=== PATIENT | female | born 1990 | race Caucasian/White ===

== ENCOUNTER 2016-08-03 12:41 | Emergency (ER) | payer OTHER ==
--- NOTE | 2016-08-03 13:29 | UC ---
UC General HPI - HPI Summary HPI Summary: complaint of RLQ pain that started 3 days ago aching sharp pain that never changes denies fever and chills intermittent headaches and cough in entire head for 3 days intermittent lower back pain diarrhea 2x per day for 3 days- denies blood in stool denies nausea and vomiting denies dysuria took some tylenol and excedrin without relief LMP 06/24/16- - History of Current Complaint Chief Complaint: UCAbdominalPain Stated Complaint: ABDOMINAL PAIN HEADACHE Time Seen by Provider: 08/03/16 12:51 Hx Obtained From: Patient - Allergy/Home Medications Allergies/Adverse Reactions: Allergies Allergy/AdvReac Type Severity Reaction Status Date / Time Adhesive Tape Allergy Mild Rash Verified 08/03/16 13:01 Penicillin G AdvReac Intermediate Vomiting Verified 08/03/16 13:01 PMH/Surg Hx/FS Hx/Imm Hx Previously Healthy: Yes Endocrine History Of: Reports: Thyroid Disease Denies: Diabetes Cardiovascular History Of: Denies: Cardiac Disorders Respiratory History Of: Denies: Asthma - Surgical History Surgical History: Yes Surgery Procedure, Year, and Place: sinus 2013 - Family History Known Family History: Positive: Hypertension, Diabetes Negative: Cardiac Disease - Social History Occupation: Unemployed Lives: With Family Alcohol Use: None Substance Use Type: None Smoking Status (MU): Light Every Day Tobacco Smoker Type: Cigarettes Amount Used/How Often: 1/2 pack day Have You Smoked in the Last Year: No When Did the Patient Quit Smoking/Using Tobacco: 2013 Household Exposure Type: Cigarettes Cessation Counseling: Patient Advised to Stop Review of Systems Constitutional: Negative Skin: Negative Eyes: Negative ENT: Negative Respiratory: Negative Cardiovascular: Negative Gastrointestinal: Abdominal Pain Genitourinary: Other - missed menses Motor: Negative Neurovascular: Negative Musculoskeletal: Negative Neurological: Headache Psychological: Negative All Other Systems Reviewed And Are Negative: Yes Physical Exam Triage Information Reviewed: Yes Appearance: No Pain Distress, Well-Nourished, Obese Vital Signs: Initial Vital Signs Temp 97.8 F 08/03/16 12:48 Pulse 68 08/03/16 12:48 Resp 16 08/03/16 12:48 BP 109/67 08/03/16 12:48 Pulse Ox 99 08/03/16 12:48 Vital Signs Reviewed: Yes Eyes: Positive: Conjunctiva Clear ENT: Positive: Pharynx normal, TMs normal Neck: Positive: No Lymphadenopathy Respiratory: Positive: Lungs clear, Normal breath sounds, No respiratory distress, No accessory muscle use Cardiovascular: Positive: RRR, No Murmur, Pulses Normal Abdomen Description: Positive: No Organomegaly, CVA Tenderness (R), Distended, Other: - RLQ tenderness. Negative: CVA Tenderness (L), Guarding Bowel Sounds: Positive: Present Musculoskeletal: Positive: No Edema Neurological Exam: Normal Psychological Exam: Normal Skin Exam: Normal Course/Dx - Course Course Of Treatment: exam completed. will send to ED for further evlauaiton and treatment d/t acute RLQ pain and tenderness - Differential Dx - Multi-Symptom Provider Diagnoses: RLQ pain - Physician Notifications Discussed Patient Care With: Dr Callaway Time Discussed With Above Provider: 14:11 Discharge - Discharge Plan Condition: Stable Disposition: TRANS HIGHER LVL OF CARE FAC Referrals: Smitha Naidu MD [Primary Care Provider] -
[2016-08-03 14:19] VITALS: BP 107/59
== END 2016-08-03 14:19 | disposition short-term general hospital (02) ==
LOC: UCCORT 12:41
DX: R10.31 Right lower quadrant pain (principal); R51 Headache; N91.2 Amenorrhea, unspecified; Z32.02 Encounter for pregnancy test, result negative; E66.9 Obesity, unspecified; Z88.0 Allergy status to penicillin; F17.210 Nicotine dependence, cigarettes, uncomplicated
CPT/HCPCS: 81003; 84702; 99213; G0463

== ENCOUNTER 2016-10-05 14:31 | Emergency (ER) | payer OTHER ==
[2016-10-05 14:46] VITALS: BP 115/79
--- NOTE | 2016-10-05 15:19 | UC ---
Headache HPI - HPI Summary HPI Summary: 26 yo female with head which she noted on wakening yesterday AM throbbing bitemporal n/v x 4 photophobia no uri symptoms has a fhx of migraines (mom) - History Of Current Complaint Chief Complaint: UCHeadache Stated Complaint: HEADACHE,VOMITING Time Seen by Provider: 10/05/16 14:51 Hx Obtained From: Patient Hx Last Menstrual Period: 09/24/16 Onset/Duration: Gradual Onset, Lasting Days Onset Of Symptoms: Sudden Initially Headache Was: Moderate Currently Pain Is: Moderate Pain Intensity: 6 Pain Scale Used: 0-10 Numeric Timing: Constant Character: Throbbing Location of Headache: Temporal Aggravating Factor: Nothing Allevating Factors: Nothing Associated Signs And Symptoms: Positive: Nausea, Vomiting - Allergies/Home Medications Allergies/Adverse Reactions: Allergies Allergy/AdvReac Type Severity Reaction Status Date / Time Adhesive Tape Allergy Mild Rash Verified 10/05/16 14:41 Penicillin G AdvReac Intermediate Vomiting Verified 10/05/16 14:41 Home Medications: Home Medications Acetaminophen TAB* [Tylenol TAB*] 500 mg PO Q4H PRN 10/05/16 [History Confirmed 10/05/16] PMH/Surg Hx/FS Hx/Imm Hx Previously Healthy: Yes - Surgical History Surgical History: Yes Surgery Procedure, Year, and Place: sinus 2013. - Family History Known Family History: Positive: Hypertension, Diabetes Negative: Cardiac Disease - Social History Alcohol Use: None Substance Use Type: None Smoking Status (MU): Heavy Every Day Tobacco Smoker Type: Cigarettes Amount Used/How Often: 1/2 pack day Have You Smoked in the Last Year: No When Did the Patient Quit Smoking/Using Tobacco: 2013 Household Exposure Type: Cigarettes Review of Systems Constitutional: Negative Skin: Negative Eyes: Negative ENT: Negative Respiratory: Negative Cardiovascular: Negative Gastrointestinal: Vomiting, Nausea Genitourinary: Negative Motor: Negative Neurovascular: Negative Musculoskeletal: Negative Neurological: Headache Psychological: Negative All Other Systems Reviewed And Are Negative: Yes Physical Exam Triage Information Reviewed: Yes Appearance: Well-Appearing, No Pain Distress, Well-Nourished Vital Signs: Initial Vital Signs Temp 97.8 F 10/05/16 14:42 Pulse 92 10/05/16 14:42 Resp 16 10/05/16 14:42 BP 115/79 10/05/16 14:42 Pulse Ox 96 10/05/16 14:42 Eye Exam: Normal ENT: Positive: Normal ENT inspection. Negative: Nasal congestion, Nasal drainage, Tonsillar exudate, Trismus, Muffled/hoarse voice Neck: Positive: Supple, Nontender Respiratory: Positive: Lungs clear, Normal breath sounds, No respiratory distress Cardiovascular: Positive: RRR, No Murmur, Pulses Normal Musculoskeletal: Positive: ROM Intact, No Edema Neurological Exam: Normal Neurological: Positive: Alert Psychological Exam: Normal Skin Exam: Normal Re-Evaluation - Re-Evaluation First Eval Re-Evaluation Time: 16:20 Change: Improved - LOPEZ 04/20, no nausea Headache Course/Dx - Course Course Of Treatment: CT brain (-) - Differential Dx/Diagnosis Provider Diagnoses: acute headache. ? migraine Discharge - Discharge Plan Condition: Stable Disposition: HOME Prescriptions: Naproxen Sodium [Naproxen Sodium 500 MG TAB] 500 mg PO BID PRN #30 tab PRN Reason: Pain Ondansetron TAB* [Zofran Tab*] 4 mg PO Q6H PRN #10 tab PRN Reason: Nausea Patient Education Materials: Acute Headache (ED) Forms: *Work Release Referrals: Smitha Naidu MD [Primary Care Provider] - 2 Days (recheck in 2-5 days if not better)
--- NOTE | 2016-10-05 15:31 | RAD ---
HISTORY: Headache and vomiting COMPARISONS: None TECHNIQUE: Multiple contiguous axial CT scans were obtained of the head without intravenous contrast. FINDINGS: HEMORRHAGE/INFARCT: There is no hemorrhage or acute infarct. MASSES/SHIFT: There is no mass or shift. EXTRA-AXIAL SPACES: There are no extra-axial fluid collections. SULCI AND VENTRICLES: The sulci and ventricles are normal in size and position for the patient's stated age. CEREBRUM: There are no focal parenchymal abnormalities. BRAINSTEM: There are no focal parenchymal abnormalities. CEREBELLUM: There are no focal parenchymal abnormalities. VESSELS: The vessels are grossly normal. PARANASAL SINUSES: The paranasal sinuses are clear. ORBITS: The orbits are unremarkable. BONES AND SOFT TISSUE: No bone or soft tissue abnormalities are noted. OTHER: None IMPRESSION: NO ACUTE INTRACRANIAL PATHOLOGY.
[2016-10-05] MEDS ORDERED: Ketorolac INJ* 30 MG/ML 1 ML VIAL IM ONE (15:47)
== END 2016-10-05 16:36 | disposition home or self-care (01) ==
LOC: UCCORT 14:31
DX: R51 Headache (principal)
CPT/HCPCS: 70450; 96372; 99212; G0463; J1885

== ENCOUNTER 2016-12-07 17:26 | Emergency (ER) | payer OTHER ==
--- NOTE | 2016-12-07 17:35 | UC ---
Complaint Female HPI - HPI Summary HPI Summary: 26 YEAR OLD FEMALE PRESENTS FOR A TEST. - History Of Current Complaint Stated Complaint: NEEDS PREG TEST Time Seen by Provider: 12/07/16 17:33 Hx Obtained From: Patient Hx Last Menstrual Period: 09/24/16 Onset/Duration: Gradual Onset Timing: Constant Severity Initially: Moderate Severity Currently: Moderate - Allergies/Home Medications Allergies/Adverse Reactions: Allergies Allergy/AdvReac Type Severity Reaction Status Date / Time Adhesive Tape Allergy Mild Rash Verified 12/07/16 17:43 Penicillin G AdvReac Intermediate Vomiting Verified 12/07/16 17:43 PMH/Surg Hx/FS Hx/Imm Hx Previously Healthy: Yes - Surgical History Surgical History: Yes Surgery Procedure, Year, and Place: sinus 2013. - Family History Known Family History: Positive: Hypertension, Diabetes Negative: Cardiac Disease - Social History Alcohol Use: None Substance Use Type: None Smoking Status (MU): Heavy Every Day Tobacco Smoker Type: Cigarettes Amount Used/How Often: 1/2 pack day Have You Smoked in the Last Year: No When Did the Patient Quit Smoking/Using Tobacco: 2013 Household Exposure Type: Cigarettes Review of Systems Constitutional: Negative Skin: Negative Eyes: Negative ENT: Negative Respiratory: Negative Cardiovascular: Negative Gastrointestinal: Negative Genitourinary: Negative Motor: Negative Neurovascular: Negative Musculoskeletal: Negative Neurological: Negative Psychological: Negative All Other Systems Reviewed And Are Negative: Yes Physical Exam Triage Information Reviewed: Yes Eye Exam: Normal ENT Exam: Normal Dental Exam: Normal Neck exam: Normal Neck: Positive: 1 Respiratory Exam: Normal Cardiovascular Exam: Normal Abdominal Exam: Normal Musculoskeletal Exam: Normal Neurological Exam: Normal Psychological Exam: Normal Skin Exam: Normal Complaint Female Dx - Differential Dx/Diagnosis Provider Diagnoses: Discharge - Discharge Plan Condition: Stable Disposition: HOME Patient Education Materials: (ED) Referrals: Smitha Naidu MD [Primary Care Provider] -
[2016-12-07 17:43] VITALS: BP 133/59
== END 2016-12-07 18:05 | disposition home or self-care (01) ==
LOC: UCCORT 17:26
DX: Z32.01 Encounter for pregnancy test, result positive (principal); F17.210 Nicotine dependence, cigarettes, uncomplicated
CPT/HCPCS: 81003; 84702; 99211; G0463

== ENCOUNTER 2016-12-24 10:17 | Emergency (ER) | payer OTHER ==
[2016-12-24 10:30] VITALS: BP 91/54
--- NOTE | 2016-12-24 11:30 | UC ---
Throat Pain/Nasal Remi HPI - HPI Summary HPI Summary: FIVE DAYS OF HEADACHE, SINUS CONGESTION, EAR ACHE, SORE THROAT. CHILLS. - History of Current Complaint Chief Complaint: UCGeneralIllness Stated Complaint: HEADACHE,SORE THROAT,BILATERAL EAR PAIN Time Seen by Provider: 12/24/16 10:58 Hx Obtained From: Patient Hx Last Menstrual Period: 09/24/16 Onset/Duration: Gradual Onset, Lasting Days Severity: Moderate Pain Intensity: 2 Pain Scale Used: 0-10 Numeric Cough: Nonproductive Associated Signs & Symptoms: Positive: Hoarseness, Sinus Discomfort, Nasal Discharge - Epiglottits Risk Factors Epiglottis Risk Factors: Negative - Allergies/Home Medications Allergies/Adverse Reactions: Allergies Allergy/AdvReac Type Severity Reaction Status Date / Time Adhesive Tape Allergy Mild Rash Verified 12/24/16 10:24 Sertraline [From Zoloft] Allergy Hives Verified 12/24/16 10:25 Penicillin G AdvReac Intermediate Vomiting Verified 12/24/16 10:24 PMH/Surg Hx/FS Hx/Imm Hx Previously Healthy: Yes - Surgical History Surgical History: Yes Surgery Procedure, Year, and Place: sinus 2013. - Family History Known Family History: Positive: Hypertension, Diabetes Negative: Cardiac Disease - Social History Occupation: Employed Full-time Lives: With Family Alcohol Use: None Substance Use Type: None Smoking Status (MU): Heavy Every Day Tobacco Smoker Type: Cigarettes Amount Used/How Often: <1/2 pack day Have You Smoked in the Last Year: No When Did the Patient Quit Smoking/Using Tobacco: 2013 Household Exposure Type: Cigarettes Cessation Counseling: Patient Advised to Stop - Immunization History Most Recent Influenza Vaccination: NONE Review of Systems Constitutional: Chills Skin: Negative Eyes: Negative ENT: Sore Throat, Ear Ache, Nasal Discharge, Sinus Congestion, Sinus Pain/ Tenderness Respiratory: Cough Cardiovascular: Negative Gastrointestinal: Negative Genitourinary: Negative Motor: Negative Neurovascular: Negative Musculoskeletal: Negative Neurological: Negative Psychological: Negative Is Patient Immunocompromised?: No All Other Systems Reviewed And Are Negative: Yes Physical Exam Triage Information Reviewed: Yes Appearance: No Pain Distress, Well-Nourished, Ill-Appearing Vital Signs: Initial Vital Signs Temp 97.6 F 12/24/16 10:25 Pulse 74 12/24/16 10:25 Resp 16 12/24/16 10:25 BP 91/54 12/24/16 10:25 Pulse Ox 99 12/24/16 10:25 Vital Signs Reviewed: Yes Eye Exam: Normal ENT: Positive: Hearing grossly normal, Pharynx normal, Nasal congestion, TM dull , Other: - MAXILLARY AND FRONTAL SINUS TENDERNESS Dental Exam: Normal Neck exam: Normal Neck: Positive: Supple, Nontender, No Lymphadenopathy. Negative: Nuchal Rigidity, Tenderness @, Enlarged Nodes @ Respiratory Exam: Normal Respiratory: Positive: Chest non-tender, Lungs clear, Normal breath sounds, No respiratory distress, No accessory muscle use Cardiovascular Exam: Normal Cardiovascular: Positive: RRR, No Murmur, Pulses Normal Abdominal Exam: Normal Abdomen Description: Positive: Nontender, No Organomegaly Musculoskeletal Exam: Normal Neurological Exam: Normal Psychological Exam: Normal Skin Exam: Normal Throat Pain/Nasal Course/Dx - Differential Dx/Diagnosis Differential Diagnosis/HQI/PQRI: Pharyngitis, Sinusitis, Tonsillitis, URI Provider Diagnoses: SINUSITIS Discharge - Discharge Plan Condition: Stable Disposition: HOME Prescriptions: Azithromycin TAB* [Zithromax TAB (Z-SUSAN) 250 mg #6 tabs] 250 mg PO DAILY #6 tab Patient Education Materials: Sinusitis (ED) Forms: *Work Release Referrals: Smitha Naidu MD [Primary Care Provider] -
== END 2016-12-24 11:19 | disposition home or self-care (01) ==
LOC: UCCORT 10:17
DX: J32.9 Chronic sinusitis, unspecified (principal); F17.210 Nicotine dependence, cigarettes, uncomplicated
CPT/HCPCS: 99212; G0463

== ENCOUNTER 2017-04-29 10:59 | Emergency (ER) | payer OTHER ==
[2017-04-29 12:42] VITALS: BP 112/63
--- NOTE | 2017-04-29 13:59 | UC ---
Respiratory Complaint HPI - HPI Summary HPI Summary: PT C/O COUGH, CONGESTION, EAR PAIN, LOPEZ AND MALAISE FOR A MONTH. NO FEVER. 24 WEEKS . SAW HER PCP/OB AND NO INTERVENTION INDICATED. ADVISED SHE LIKELY HAD A VIRAL ILLNESS. - History of Current Complaint Chief Complaint: UCGeneralIllness Stated Complaint: LOPEZ,EARS Time Seen by Provider: 04/29/17 13:31 Hx Obtained From: Patient Hx Last Menstrual Period: 09/24/16 Onset/Duration: Gradual Onset, Lasting Weeks, Still Present Timing: Constant Severity Initially: Moderate Severity Currently: Moderate Pain Intensity: 4 Pain Scale Used: 0-10 Numeric Character: Cough: Nonproductive Aggravating Factors: Nothing Alleviating Factors: Nothing Associated Signs And Symptoms: Positive: URI, Nasal Congestion. Negative: Dyspnea, Fever, Wheezing - Allergies/Home Medications Allergies/Adverse Reactions: Allergies Allergy/AdvReac Type Severity Reaction Status Date / Time Adhesive Tape Allergy Mild Rash Verified 04/29/17 12:42 Sertraline [From Zoloft] Allergy Hives Verified 04/29/17 12:42 Penicillin G AdvReac Intermediate Vomiting Verified 04/29/17 12:42 Home Medications: Home Medications Without A Vit W/ Fe F [Prenata 29-1 mg] 1 chw PO DAILY 04/29/17 [ History Confirmed 04/29/17] PMH/Surg Hx/FS Hx/Imm Hx Endocrine History: Hypothyroidism - Surgical History Surgical History: Yes Surgery Procedure, Year, and Place: sinus 2013. - Family History Known Family History: Positive: Hypertension, Diabetes Negative: Cardiac Disease - Social History Alcohol Use: None Substance Use Type: None Smoking Status (MU): Heavy Every Day Tobacco Smoker Type: Cigarettes Amount Used/How Often: <1/2 pack day Have You Smoked in the Last Year: No When Did the Patient Quit Smoking/Using Tobacco: 2013 Household Exposure Type: Cigarettes - Immunization History Most Recent Influenza Vaccination: NONE 2017` Review of Systems Constitutional: Fatigue ENT: Ear Ache, Nasal Discharge Respiratory: Cough Cardiovascular: Negative Gastrointestinal: Negative Neurological: Headache All Other Systems Reviewed And Are Negative: Yes Physical Exam Triage Information Reviewed: Yes Appearance: Well-Appearing, No Pain Distress, Well-Nourished Vital Signs: Initial Vital Signs Temp 98.5 F 04/29/17 12:38 Pulse 73 04/29/17 12:38 Resp 18 04/29/17 12:38 BP 112/63 04/29/17 12:38 Pulse Ox 98 04/29/17 12:38 Vital Signs Reviewed: Yes Eyes: Positive: Conjunctiva Clear ENT: Positive: Hearing grossly normal, Pharynx normal, TMs normal Neck: Positive: Supple, Nontender, No Lymphadenopathy Respiratory Exam: Normal Cardiovascular Exam: Normal Abdomen Description: Positive: Soft, Other: - GRAVID Musculoskeletal: Positive: No Edema Neurological: Positive: Alert Psychological: Positive: Age Appropriate Behavior Skin: Negative: rashes UC Diagnostic Evaluation - Laboratory O2 Sat by Pulse Oximetry: 98 Diagnostic Studies Comment: FLU SWAB NEGATIVE Respiratory Course/Dx - Differential Dx/Diagnosis Provider Diagnoses: URI Discharge - Discharge Plan Condition: Stable Disposition: HOME Patient Education Materials: Upper Respiratory Infection (ED) Referrals: Smitha Naidu MD [Primary Care Provider] - If Needed Additional Instructions: FLU SWAB NEGATIVE. YOUR SYMPTOMS ARE LIKELY VIRALLY MEDIATED AND SHOULD RESOLVE ON THEIR OWN WITH TIME. REST, HYDRATE, TYLENOL NEEDED. SEEK FOLLOW-UP IF YOU ARE NOT IMPROVING EXPECTED. REMEMBER THAT ILLNESSES TEND TO LAST LONGER DURING DUE TO YOUR RELATIVELY SUPPRESSED IMMUNE SYSTEM. TRY OTC AFRIN FOR NASAL CONGESTION. OKAY TO USE 2 SPRAYS IN EACH NOSTRIL NIGHTLY BEFORE BED. DO NOT USE FOR MORE THAN 3-4 CONSECUTIVE DAYS TO PREVENT DEVELOPING REBOUND CONGESTION.
== END 2017-04-29 14:20 | disposition home or self-care (01) ==
LOC: UCCORT 10:59
DX: O26.892 Other specified pregnancy related conditions, second trimester (principal); Z3A.24 24 weeks gestation of pregnancy; J06.9 Acute upper respiratory infection, unspecified; Z87.891 Personal history of nicotine dependence
CPT/HCPCS: 87502; 99211; G0463

== ENCOUNTER 2017-09-19 11:12 | Emergency (ER) | payer OTHER ==
[2017-09-19 11:32] VITALS: BP 126/77
--- NOTE | 2017-09-19 11:59 | ED ---
Throat Pain/Nasal Congestion - HPI Summary HPI Summary: 27 yr old female with the complaint of cough and right ear pain. Onset of pain a couple of days ago. denies fever, chills. Denies runny nose. She has a history of prior sinus surgery. She is not breast feeding, but has a young baby she is bottle feeding. - History of Current Complaint Chief Complaint: UCEar Time Seen by Provider: 09/19/17 11:45 - Allergies/Home Medications Allergies/Adverse Reactions: Allergies Allergy/AdvReac Type Severity Reaction Status Date / Time sertraline [From Zoloft] Allergy Hives Verified 09/19/17 11:42 Penicillins AdvReac Vomiting Verified 09/19/17 11:42 Home Medications: Home Medications Aspirin/Acetaminophen/Caffeine [Excedrin Extra Strength Caplet] 1 each PO ONCE PRN 09/19/17 [History Confirmed 09/19/17] PMH/Surg Hx/FS Hx/Imm Hx Endocrine/Hematology History: Reports: Hx Thyroid Disease - hypo Denies: Hx Diabetes Respiratory History: Denies: Hx Asthma - Surgical History Surgery Procedure, Year, and Place: sinus 2013. x2 Infectious Disease History: No Infectious Disease History: Denies: Hx Clostridium Difficile, Hx Hepatitis, Hx Human Immunodeficiency Virus (HIV), Hx of Known/Suspected MRSA, Hx Shingles, Hx Tuberculosis, Hx Known/ Suspected VRE, Hx Known/Suspected VRSA, History Other Infectious Disease, Traveled Outside the [place] in Last 30 Days - Family History Known Family History: Positive: Hypertension, Diabetes Negative: Cardiac Disease - Social History Alcohol Use: None Substance Use Type: Reports: None Smoking Status (MU): Heavy Every Day Tobacco Smoker Type: Cigarettes Amount Used/How Often: 1/2 pack day Length of Time of Smoking/Using Tobacco: since age 16 Have You Smoked in the Last Year: Yes Review of Systems Constitutional: Negative Positive: Ear Ache Positive: Cough All Other Systems Reviewed And Are Negative: Yes Physical Exam Triage Information Reviewed: Yes Vital Signs On Initial Exam: Initial Vitals Temp Pulse Resp BP Pulse Ox 96.6 F 69 16 126/77 99 09/19/17 11:22 09/19/17 11:22 09/19/17 11:22 09/19/17 11:22 09/19/17 11:22 Vital Signs Reviewed: Yes Appearance: Positive: Well-Appearing, No Pain Distress Skin: Positive: Warm, Skin Color Reflects Adequate Perfusion Head/Face: Positive: Normal Head/Face Inspection Eyes: Positive: EOMI ENT: Positive: Pharynx normal, Nasal congestion, TM red - right with retraction Neck: Positive: Nontender Respiratory/Lung Sounds: Positive: Clear to Auscultation, Breath Sounds Present Cardiovascular: Positive: RRR. Negative: Murmur Abdomen Description: Positive: Nontender Musculoskeletal: Positive: Strength/ROM Intact Neurological: Positive: Sensory/Motor Intact, Alert, Oriented to Person Place, Time, CN Intact II-III Psychiatric: Positive: Normal - [place] Coma Scale Best Eye Response: 4 - Spontaneous Best Motor Response: 6 - Obeys Commands Best Verbal Response: 5 - Oriented Coma Scale Total: 15 Diagnostics - Vital Signs Vital Signs Temp Pulse Resp BP Pulse Ox 09/19/17 11:22 96.6 F 69 16 126/77 99 - Laboratory Lab Statement: Any lab studies that have been ordered have been reviewed, and results considered in the medical decision making process. EENT Course/Dx - Course Course Of Treatment: 27 yr old with cough and Otitis media. Plan rx with zithromax. Allergies to penicillins. - Diagnoses Provider Diagnoses: Cough, Otitis media Discharge - Sign-Out/Discharge Documenting (check all that apply): Discharge/Admit/Transfer - Discharge Plan Condition: Good Disposition: HOME Prescriptions: Azithromycin TAB* [Zithromax TAB (Z-SUSAN) 250 mg #6 tabs] 2 tab PO .TODAY, THEN 1 DAILY #1 susan Patient Education Materials: Ear Infection (ED) Referrals: Smitha Naidu MD [Primary Care Provider] - 2 Days - Billing Disposition and Condition Condition: GOOD Disposition: Home
== END 2017-09-19 12:10 | disposition home or self-care (01) ==
LOC: UCCORT 11:12
DX: H66.91 Otitis media, unspecified, right ear (principal); R05 Cough; F17.210 Nicotine dependence, cigarettes, uncomplicated; Z88.8 Allergy status to other drugs, medicaments and biological substances; Z88.0 Allergy status to penicillin
CPT/HCPCS: 99212; G0463

== ENCOUNTER 2018-01-31 20:03 | Emergency (ER) | payer OTHER ==
[2018-01-31 20:55] VITALS: BP 108/76
--- NOTE | 2018-01-31 21:49 | ED ---
Throat Pain/Nasal Congestion - HPI Summary HPI Summary: 27 yr old female with runny nose, sinus pressure, post nasal drip, left ear pain , cough. Symptoms moderate. others in house sick with similar cold and cough. Onset 5-6 days ago. No SOB. Allergies to Penicillin - History of Current Complaint Chief Complaint: UCGeneralIllness Time Seen by Provider: 01/31/18 21:28 - Allergies/Home Medications Allergies/Adverse Reactions: Allergies Allergy/AdvReac Type Severity Reaction Status Date / Time sertraline [From Zoloft] Allergy Hives Verified 01/31/18 20:52 Penicillins AdvReac Vomiting Verified 01/31/18 20:52 PMH/Surg Hx/FS Hx/Imm Hx Endocrine/Hematology History: Reports: Hx Thyroid Disease - hypo Denies: Hx Diabetes Respiratory History: Denies: Hx Asthma - Surgical History Surgery Procedure, Year, and Place: sinus 2013. x2 Infectious Disease History: No Infectious Disease History: Denies: Hx Clostridium Difficile, Hx Hepatitis, Hx Human Immunodeficiency Virus (HIV), Hx of Known/Suspected MRSA, Hx Shingles, Hx Tuberculosis, Hx Known/ Suspected VRE, Hx Known/Suspected VRSA, History Other Infectious Disease, Traveled Outside the [place] in Last 30 Days - Family History Known Family History: Positive: Hypertension, Diabetes Negative: Cardiac Disease - Social History Alcohol Use: None Substance Use Type: Reports: None Smoking Status (MU): Heavy Every Day Tobacco Smoker Type: Cigarettes Amount Used/How Often: 1/2 pack day Length of Time of Smoking/Using Tobacco: since age 16 Have You Smoked in the Last Year: Yes Review of Systems Constitutional: Negative Positive: Sore Throat, Ear Ache, Nasal Discharge Positive: Cough All Other Systems Reviewed And Are Negative: Yes Physical Exam Triage Information Reviewed: Yes Vital Signs On Initial Exam: Initial Vitals Temp Pulse Resp BP Pulse Ox 97.6 F 86 17 108/76 99 01/31/18 20:51 01/31/18 20:51 01/31/18 20:51 01/31/18 20:51 01/31/18 20:51 Vital Signs Reviewed: Yes Appearance: Positive: Well-Appearing, No Pain Distress Skin: Positive: Warm, Skin Color Reflects Adequate Perfusion Head/Face: Positive: Normal Head/Face Inspection Eyes: Positive: EOMI ENT: Positive: Pharyngeal erythema, Nasal congestion, Nasal drainage, TM dull, TM red - left Neck: Positive: Supple, Nontender, No Lymphadenopathy Respiratory/Lung Sounds: Positive: Clear to Auscultation, Breath Sounds Present Cardiovascular: Positive: RRR. Negative: Murmur Abdomen Description: Positive: Nontender. Negative: Distended Musculoskeletal: Positive: Strength/ROM Intact Neurological: Positive: Sensory/Motor Intact, Alert, Oriented to Person Place, Time, CN Intact II-III Psychiatric: Positive: Normal - [place] Coma Scale Best Eye Response: 4 - Spontaneous Best Motor Response: 6 - Obeys Commands Best Verbal Response: 5 - Oriented Coma Scale Total: 15 Diagnostics - Vital Signs Vital Signs Temp Pulse Resp BP Pulse Ox 01/31/18 20:51 97.6 F 86 17 108/76 99 - Laboratory Lab Statement: Any lab studies that have been ordered have been reviewed, and results considered in the medical decision making process. EENT Course/Dx - Course Course Of Treatment: 27 yr old with URI and OM. Rx Biaxin. - Diagnoses Provider Diagnoses: Otitis media Discharge - Sign-Out/Discharge Documenting (check all that apply): Patient Departure All imaging exams completed and their final reports reviewed: No Studies - Discharge Plan Condition: Good Disposition: HOME Prescriptions: Clarithromycin TAB* [Biaxin 500 MG TAB*] 500 mg PO BID #20 tab Patient Education Materials: Ear Infection (ED) Forms: *Work Release Referrals: Smitha Naidu MD [Primary Care Provider] - 2 Days - Billing Disposition and Condition Condition: GOOD Disposition: Home
== END 2018-01-31 21:54 | disposition home or self-care (01) ==
LOC: UCCORT 20:03
DX: H66.92 Otitis media, unspecified, left ear (principal); Z88.8 Allergy status to other drugs, medicaments and biological substances; Z88.0 Allergy status to penicillin
CPT/HCPCS: 99212; G0463

== ENCOUNTER 2018-03-21 17:50 | Emergency (ER) | payer OTHER ==
[2018-03-21 18:57] VITALS: BP 117/64
[2018-03-21] MEDS ORDERED: Ibuprofen TAB* 600 MG PO ONE (19:08)
--- NOTE | 2018-03-21 19:14 | UC ---
Hand/Wrist HPI - HPI Summary HPI Summary: The patient is a 27-year-old female who injured her right wrist this morning when she fell. She is left-handed. - History Of Current Complaint Chief Complaint: UCTrauma Stated Complaint: RIGHT WRIST INJURY Time Seen by Provider: 03/21/18 19:04 Hx Obtained From: Patient Hx Last Menstrual Period: 02/24/18 Onset/Duration: Sudden Onset Severity Initially: Mild Severity Currently: Mild Pain Intensity: 4 Pain Scale Used: 0-10 Numeric Character Of Pain: Aching Aggravating Factor(s): Movement Alleviating Factor(s): Rest Associated Signs And Symptoms: Positive: Swelling Related History: Dominant Hand Left Hands: 1 - tender 2 - min snuff box tenderness - Allergies/Home Medications Allergies/Adverse Reactions: Allergies Allergy/AdvReac Type Severity Reaction Status Date / Time sertraline [From Zoloft] Allergy Hives Verified 03/21/18 18:57 Penicillins AdvReac Vomiting Verified 03/21/18 18:57 PMH/Surg Hx/FS Hx/Imm Hx Previously Healthy: Yes - Surgical History Surgical History: Yes Surgery Procedure, Year, and Place: sinus 2013. x2 - Family History Known Family History: Positive: Hypertension, Diabetes Negative: Cardiac Disease - Social History Alcohol Use: None Substance Use Type: None Smoking Status (MU): Heavy Every Day Tobacco Smoker Type: Cigarettes Amount Used/How Often: 1/2 pack day Length of Time of Smoking/Using Tobacco: since age 16 Have You Smoked in the Last Year: Yes When Did the Patient Quit Smoking/Using Tobacco: 2013 Household Exposure Type: Cigarettes - Immunization History Most Recent Influenza Vaccination: NONE 2017` Review of Systems All Other Systems Reviewed And Are Negative: Yes Constitutional: Positive: Negative Skin: Positive: Negative Eyes: Positive: Negative ENT: Positive: Negative Respiratory: Positive: Negative Cardiovascular: Positive: Negative Gastrointestinal: Positive: Negative Genitourinary: Positive: Negative Motor: Positive: Negative Neurovascular: Positive: Negative Musculoskeletal: Positive: Arthralgia Neurological: Positive: Negative Psychological: Positive: Negative Physical Exam Triage Information Reviewed: Yes Appearance: Well-Appearing, No Pain Distress, Well-Nourished Vital Signs: Initial Vital Signs Temp 98.4 F 03/21/18 18:54 Pulse 84 03/21/18 18:54 Resp 18 03/21/18 18:54 BP 117/64 03/21/18 18:54 Pulse Ox 100 03/21/18 18:54 Vital Signs Reviewed: Yes ENT: Positive: Hearing grossly normal, Uvula midline. Negative: Nasal congestion, Nasal drainage, Tonsillar swelling, Tonsillar exudate, Hoarse voice , Sinus tenderness Neck: Positive: Supple, Nontender Respiratory: Positive: Lungs clear, Normal breath sounds, No respiratory distress, No accessory muscle use Cardiovascular: Positive: RRR, No Murmur Musculoskeletal: Positive: Other: - see image Neurological: Positive: Alert, Muscle Tone Normal Psychological Exam: Normal Skin Exam: Normal Diagnostics - Radiology No standard instances Radiology Interpretation Completed By: ED Physician Summary of Radiographic Findings: no fx noted Hand/Wrist Course/Dx - Differential Dx/Diagnosis Provider Diagnosis: Sprain of wrist, right Discharge - Sign-Out/Discharge Documenting (check all that apply): Patient Departure All imaging exams completed and their final reports reviewed: No - Discharge Plan Condition: Stable Disposition: HOME Patient Education Materials: Wrist Sprain (ED) Forms: *Work Release Referrals: Brandi Clarke [Primary Care Provider] - Additional Instructions: thumb spica splint for one week if not better after one week get rechecked here or with your MD - Billing Disposition and Condition Condition: STABLE Disposition: Home
--- NOTE | 2018-03-22 15:26 | UC ---
- EKG/XRAY/CT Xray Comments: wet read correct Course/Dx - Diagnoses Provider Diagnoses: Sprain of wrist, right Discharge - Sign-Out/Discharge Documenting (check all that apply): Post-Discharge Follow Up All imaging exams completed and their final reports reviewed: Yes - Discharge Plan Condition: Stable Disposition: HOME Prescriptions: Ibuprofen TAB* [Motrin TAB*] 600 mg PO Q6H PRN #40 tab PRN Reason: Pain Patient Education Materials: Wrist Sprain (ED) Forms: *Work Release Referrals: Brandi Clarke [Primary Care Provider] - Additional Instructions: thumb spica splint for one week if not better after one week get rechecked here or with your MD - Billing Disposition and Condition Condition: STABLE Disposition: Home
== END 2018-03-21 19:36 | disposition home or self-care (01) ==
LOC: UCCORT 17:50
DX: S63.501A Unspecified sprain of right wrist, initial encounter (principal); W19.XXXA Unspecified fall, initial encounter; Y92.9 Unspecified place or not applicable; F17.210 Nicotine dependence, cigarettes, uncomplicated
CPT/HCPCS: 99213; A9270-GY; G0463

== ENCOUNTER 2018-05-24 15:12 | Emergency (ER) | payer OTHER ==
[2018-05-24 15:39] VITALS: BP 112/51
--- NOTE | 2018-05-24 15:54 | UC ---
Throat Pain/Nasal Remi HPI - HPI Summary HPI Summary: 27-year-old woman comes in with a chief complaint of upper respiratory tract infection symptoms for several weeks. She's been having green and bloody rhinorrhea. Also has some sore throat and some ear pressure male on the right. Shortness of breath no chest congestion. Minimal myalgias. Over the counter medicines help with the symptoms. - History of Current Complaint Chief Complaint: UCGeneralIllness Stated Complaint: SORE THROAT/COUGH Time Seen by Provider: 05/24/18 15:39 Hx Last Menstrual Period: 05/19/18 Pain Intensity: 3 - Allergies/Home Medications Allergies/Adverse Reactions: Allergies Allergy/AdvReac Type Severity Reaction Status Date / Time sertraline [From Zoloft] Allergy Hives Verified 05/24/18 15:36 Penicillins AdvReac Vomiting Verified 05/24/18 15:36 Home Medications: Home Medications Aspirin/Acetaminophen/Caffeine [Excedrin Extra Strength Caplet] 2 each PO ONCE 05/24/18 [History Confirmed 05/24/18] PMH/Surg Hx/FS Hx/Imm Hx Previously Healthy: Yes Endocrine History: Hypothyroidism - Surgical History Surgical History: Yes Surgery Procedure, Year, and Place: sinus 2013. x2 - Family History Known Family History: Positive: Hypertension, Diabetes Negative: Cardiac Disease - Social History Alcohol Use: None Substance Use Type: None Smoking Status (MU): Heavy Every Day Tobacco Smoker Type: Cigarettes Amount Used/How Often: 1/2 pack day Length of Time of Smoking/Using Tobacco: since age 16 Have You Smoked in the Last Year: Yes When Did the Patient Quit Smoking/Using Tobacco: 2013 Household Exposure Type: Cigarettes - Immunization History Most Recent Influenza Vaccination: NONE 2016` Review of Systems All Other Systems Reviewed And Are Negative: Yes Constitutional: Positive: Negative Skin: Positive: Negative Eyes: Positive: Negative ENT: Positive: Sore Throat, Ear Ache, Nasal Discharge, Sinus Congestion, Sinus Pain/Tenderness Respiratory: Positive: Negative Cardiovascular: Positive: Negative Gastrointestinal: Positive: Negative Motor: Positive: Negative Neurovascular: Positive: Negative Musculoskeletal: Positive: Negative Neurological: Positive: Negative Psychological: Positive: Negative Is Patient Immunocompromised?: No Physical Exam Triage Information Reviewed: Yes Appearance: Well-Appearing, No Pain Distress, Well-Nourished Vital Signs: Initial Vital Signs Temp 96.8 F 05/24/18 15:35 Pulse 70 05/24/18 15:35 Resp 18 05/24/18 15:35 BP 112/51 05/24/18 15:35 Pulse Ox 99 05/24/18 15:35 Vital Signs Reviewed: Yes Eye Exam: Normal Eyes: Positive: Conjunctiva Clear ENT: Positive: Pharyngeal erythema, Nasal congestion, Nasal drainage, TMs normal Neck exam: Normal Neck: Positive: Supple Respiratory: Positive: Lungs clear, Normal breath sounds, No respiratory distress Cardiovascular: Positive: RRR Musculoskeletal Exam: Normal Musculoskeletal: Positive: Strength Intact, ROM Intact Neurological Exam: Normal Neurological: Positive: Alert, Muscle Tone Normal Psychological Exam: Normal Psychological: Positive: Normal Response To Family, Age Appropriate Behavior Skin Exam: Normal Throat Pain/Nasal Course/Dx - Differential Dx/Diagnosis Provider Diagnosis: Sinusitis Discharge - Sign-Out/Discharge Documenting (check all that apply): Patient Departure All imaging exams completed and their final reports reviewed: No Studies - Discharge Plan Condition: Stable Disposition: HOME Prescriptions: Cefdinir [Cefdinir 300 MG CAP] 300 mg PO BID #20 cap Patient Education Materials: Sinusitis (ED) Referrals: Brandi Clarke [Primary Care Provider] - Additional Instructions: FOLLOW UP WITH YOUR DOCTOR IF NOT COMPLETELY IMPROVED. GET RECHECKED FOR ANY WORSENING OF YOUR CONDITION OR QUESTIONS OR CONCERNS. - Billing Disposition and Condition Condition: STABLE Disposition: Home
== END 2018-05-24 16:10 | disposition home or self-care (01) ==
LOC: UCCORT 15:12
DX: J32.9 Chronic sinusitis, unspecified (principal); F17.210 Nicotine dependence, cigarettes, uncomplicated; Z88.0 Allergy status to penicillin; Z88.8 Allergy status to other drugs, medicaments and biological substances
CPT/HCPCS: 99212; G0463

== ENCOUNTER 2018-10-02 13:42 | Emergency (ER) | payer OTHER ==
[2018-10-02 14:15] VITALS: BP 121/61
--- NOTE | 2018-10-02 14:39 | UC ---
Back Pain HPI - HPI Summary HPI Summary: Pt rpesents with c/o gradual onset of low back pain that is mid back and radiates to right posterior leg and knee X 4 days. Pt denies injury. 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 Pt also stated that she has had uri like symptoms at first she told me for 4 days then she changed the length of time to 2 weeks. Pt thinks she has a sinus infection. - History of Current Complaint Chief Complaint: UCBackPain Stated Complaint: BACK/RIGHT KNEE PAIN Time Seen by Provider: 10/02/18 14:01 Hx Obtained From: Patient Hx Last Menstrual Period: 09/14/18 ?: No Onset/Duration: Gradual Onset, Lasting Days, Still Present Timing: Constant Severity Initially: Mild Severity Currently: Mild Pain Intensity: 4 Back Pain: Is Discrete @ - mid back, Radiates To - left lower back and left posterior leg Character: Dull, Aching, Stiffness Aggravating Factor(s): Movement Alleviating Factor(s): Rest, Position Associated Signs And Symptoms: Positive: Negative - Risk Factors AAA Risk Factors: Negative TAD Risk Factors: Negative Cauda Equina Risk Factors: Negative - Allergies/Home Medications Allergies/Adverse Reactions: Allergies Allergy/AdvReac Type Severity Reaction Status Date / Time sertraline [From Zoloft] Allergy Hives Verified 10/02/18 14:05 Penicillins AdvReac Vomiting Verified 10/02/18 14:05 Home Medications: Home Medications QUEtiapine TAB* [Seroquel 25 MG TAB*] 25 mg PO DAILY 10/02/18 [History Confirmed 10/02/18] PMH/Surg Hx/FS Hx/Imm Hx Previously Healthy: Yes Psychological History: Depression - Surgical History Surgical History: Yes Surgery Procedure, Year, and Place: sinus 2013. x2 - Family History Known Family History: Positive: Hypertension, Diabetes Negative: Cardiac Disease - Social History Occupation: Employed Full-time Lives: With Family Alcohol Use: None Substance Use Type: None Smoking Status (MU): Heavy Every Day Tobacco Smoker Type: Cigarettes Amount Used/How Often: 1/2 pack day Length of Time of Smoking/Using Tobacco: since age 16 Have You Smoked in the Last Year: Yes When Did the Patient Quit Smoking/Using Tobacco: 2013 Household Exposure Type: Cigarettes - Immunization History Most Recent Influenza Vaccination: NONE 2017` Vaccination Up to Date: Yes Review of Systems All Other Systems Reviewed And Are Negative: Yes Constitutional: Positive: Fatigue Skin: Positive: Negative Eyes: Positive: Negative ENT: Positive: Sinus Congestion, Sinus Pain/Tenderness Respiratory: Positive: Cough Cardiovascular: Positive: Negative Gastrointestinal: Positive: Negative Genitourinary: Positive: Negative Motor: Positive: Decreased ROM - back and right lower extremity. Neurovascular: Positive: Negative Musculoskeletal: Positive: Arthralgia, Myalgia Neurological: Positive: Negative Psychological: Positive: Negative Is Patient Immunocompromised?: No Physical Exam Triage Information Reviewed: Yes Appearance: Obese Vital Signs: Initial Vital Signs Temp 97.6 F 10/02/18 14:07 Pulse 79 10/02/18 14:07 Resp 20 10/02/18 14:07 BP 121/61 10/02/18 14:07 Pulse Ox 97 10/02/18 14:07 Vital Signs Reviewed: Yes Eye Exam: Normal ENT: Positive: TM bulging, Sinus tenderness Dental Exam: Normal Neck exam: Normal Respiratory Exam: Normal Respiratory: Positive: Normal breath sounds Cardiovascular Exam: Normal Musculoskeletal Exam: Normal Musculoskeletal: Positive: Strength Intact, ROM Intact Neurological Exam: Normal Psychological Exam: Normal Skin Exam: Normal Back Pain Course/Dx - Differential Dx/Diagnosis Differential Diagnosis/HQI/PQRI: Strain Provider Diagnosis: Low back strain, Sinusitis Discharge - Sign-Out/Discharge Documenting (check all that apply): Patient Departure All imaging exams completed and their final reports reviewed: No Studies - Discharge Plan Condition: Stable Disposition: HOME Prescriptions: Azithromycin TAB* [Zithromax TAB (Z-SUSAN) 250 mg #6 tabs] 2 tab PO .TODAY, THEN 1 DAILY #1 susan Fexofenadine/Pseudoephedrine [Tessie-D 24 Hour Tablet] 1 each PO DAILY #10 tab.er.24h Patient Education Materials: Sinusitis (ED), Acute Low Back Pain (ED) Forms: *Work Release Referrals: Brandi Clarke [Primary Care Provider] - If Needed Additional Instructions: Please follow up with your PCP as needed. - Billing Disposition and Condition Condition: STABLE Disposition: Home
== END 2018-10-02 14:48 | disposition home or self-care (01) ==
LOC: UCCORT 13:42
DX: S39.012A Strain of muscle, fascia and tendon of lower back, initial encounter (principal); X50.0XXA Overexertion from strenuous movement or load, initial encounter; Y93.F2 Activity, caregiving, lifting; Y92.89 Other specified places as the place of occurrence of the external cause; Y99.0 Civilian activity done for income or pay; J32.9 Chronic sinusitis, unspecified; F32.9 Major depressive disorder, single episode, unspecified; F17.210 Nicotine dependence, cigarettes, uncomplicated
CPT/HCPCS: 99212; G0463

== ENCOUNTER 2019-03-28 12:11 | Emergency (ER) | payer SELFPAY ==
[2019-03-28 12:33] VITALS: BP 130/92
--- NOTE | 2019-03-28 12:45 | UC ---
Throat Pain/Nasal Remi HPI - HPI Summary HPI Summary: 28 yo female with two week hx of cough and chest tightness. This has been associated with worsening sinus pressure and bella. for the past two days her sinus pressure has been severe (L Max) and her upper teeth and gums are tender. +chills - History of Current Complaint Chief Complaint: UCEar Stated Complaint: COUGH,ST,LEFT EYE/EAR PAIN Time Seen by Provider: 03/28/19 12:37 Hx Obtained From: Patient Hx Last Menstrual Period: last month Onset/Duration: Sudden Onset Severity: Moderate Pain Intensity: 6 Pain Scale Used: 0-10 Numeric Cough: Nonproductive - Allergies/Home Medications Allergies/Adverse Reactions: Allergies Allergy/AdvReac Type Severity Reaction Status Date / Time sertraline [From Zoloft] Allergy Hives Verified 03/28/19 12:33 Penicillins AdvReac Vomiting Verified 03/28/19 12:33 PMH/Surg Hx/FS Hx/Imm Hx Previously Healthy: Yes - Surgical History Surgical History: Yes Surgery Procedure, Year, and Place: sinus 2013. x2 - Family History Known Family History: Positive: Hypertension, Diabetes Negative: Cardiac Disease - Social History Alcohol Use: None Substance Use Type: None Smoking Status (MU): Heavy Every Day Tobacco Smoker Type: Cigarettes Amount Used/How Often: 1/2 pack day Length of Time of Smoking/Using Tobacco: since age 16 Have You Smoked in the Last Year: Yes When Did the Patient Quit Smoking/Using Tobacco: 2013 Household Exposure Type: Cigarettes - Immunization History Most Recent Influenza Vaccination: NONE 2016` Vaccination Up to Date: Yes Review of Systems All Other Systems Reviewed And Are Negative: Yes Constitutional: Positive: Chills, Fatigue Skin: Positive: Negative Eyes: Positive: Negative ENT: Positive: Nasal Discharge, Sinus Congestion, Sinus Pain/Tenderness Respiratory: Positive: Cough Cardiovascular: Positive: Negative Gastrointestinal: Positive: Negative Genitourinary: Positive: Negative Motor: Positive: Negative Neurovascular: Positive: Negative Musculoskeletal: Positive: Negative Neurological: Positive: Negative Psychological: Positive: Negative Physical Exam Triage Information Reviewed: Yes Appearance: Well-Appearing, No Pain Distress, Well-Nourished Vital Signs: Initial Vital Signs Temp 97.4 F 03/28/19 12:28 Pulse 94 03/28/19 12:28 Resp 18 03/28/19 12:28 BP 130/92 03/28/19 12:28 Pulse Ox 99 03/28/19 12:28 Vital Signs Reviewed: Yes Eyes: Positive: Conjunctiva Clear ENT: Positive: Hearing grossly normal, Nasal congestion, Nasal drainage, TM dull - Left and retracted, Sinus tenderness - Left max. Negative: TM bulging, TM red, Tonsillar swelling, Tonsillar exudate, Trismus, Hoarse voice, Dental tenderness, Uvula midline Dental Exam: Normal Neck: Positive: Supple, Nontender Respiratory: Positive: No respiratory distress, Wheezing Cardiovascular: Positive: RRR, No Murmur Musculoskeletal: Positive: ROM Intact, No Edema Neurological: Positive: Alert Psychological Exam: Normal Skin Exam: Normal Throat Pain/Nasal Course/Dx - Differential Dx/Diagnosis Provider Diagnosis: Left serous otitis media, Bronchitis, Sinusitis, Elevated BP without diagnosis of hypertension Discharge ED - Sign-Out/Discharge Documenting (check all that apply): Patient Departure All imaging exams completed and their final reports reviewed: No Studies - Discharge Plan Condition: Stable Disposition: HOME Prescriptions: DOXYcycline CAP(*) [DOXYcycline 100MG CAP(*)] 100 mg PO BID #14 cap predniSONE TAB* [Deltasone 20 MG TAB*] 40 mg PO DAILY #8 tab Patient Education Materials: Acute Bronchitis (ED), How to Use a Metered-Dose Inhaler and a Spacer (ED) Forms: *Work Release Referrals: Brandi Clarke [Primary Care Provider] - Additional Instructions: BP recheck in 2-12 weeks recheck in 4 days if not improved - Billing Disposition and Condition Condition: STABLE Disposition: Home
[2019-03-28] MEDS ORDERED: predniSONE TAB* 20 MG PO ONE (12:50)
[2019-03-28] MEDS ORDERED: Albuterol HFA INHALER* 8 gm MDI INH ONE (12:50)
== END 2019-03-28 13:08 | disposition home or self-care (01) ==
LOC: UCCORT 12:11
DX: J40 Bronchitis, not specified as acute or chronic (principal); H65.92 Unspecified nonsuppurative otitis media, left ear; J32.9 Chronic sinusitis, unspecified; R03.0 Elevated blood-pressure reading, without diagnosis of hypertension; R09.89 Other specified symptoms and signs involving the circulatory and respiratory systems; R09.81 Nasal congestion; F17.210 Nicotine dependence, cigarettes, uncomplicated; Z88.0 Allergy status to penicillin; Z88.8 Allergy status to other drugs, medicaments and biological substances
CPT/HCPCS: 99213; A9270-GY; G0463; J7512

== ENCOUNTER 2019-05-01 09:48 | Emergency (ER) | payer SELFPAY ==
--- NOTE | 2019-05-01 10:22 | UC ---
FLU HPI - HPI Summary HPI Summary: 28 yo female presents with cold symptoms. She tells me that over the last 3-4 days she has had a frontal headache, sinus congestion, chest congestion, and cough. She has been taking tylenol and ibuprofen for her headache with little relief. She is still smoking daily. Denies fever, chills, vision changes, sore throat, SOB, rash, n/v. Was treated for bronchitis/sinusitis with doxy about a month ago and states her symptoms improved for a week or two, but have returned. - History of Current Complaint Stated Complaint: LOPEZ/BACK PAIN Time Seen by Provider: 05/01/19 10:22 Hx Obtained From: Patient Hx Last Menstrual Period: last month Onset/Duration: Gradual Onset Severity Currently: Mild Severity Initially: Mild Pain Intensity: 3 Pain Scale Used: 0-10 Numeric - Allergy/Home Medications Allergies/Adverse Reactions: Allergies Allergy/AdvReac Type Severity Reaction Status Date / Time Adhesive Tape Allergy Unknown localized Verified 05/01/19 10:37 rash sertraline [From Zoloft] Allergy Hives Verified 05/01/19 10:37 Penicillins AdvReac Vomiting Verified 05/01/19 10:37 Home Medications: Home Medications Ibuprofen TAB* [Advil TAB*] 200 mg PO Q6H PRN 05/01/19 [History Confirmed ] Levothyroxine TAB* [Synthroid TAB*] 200 mcg PO DAILY 05/01/19 [History Confirmed 05/01/19] PMH/Surg Hx/FS Hx/Imm Hx Endocrine History: Hypothyroidism Neurological History: Migraine - Surgical History Surgical History: Yes Surgery Procedure, Year, and Place: sinus 2013. x2 - Family History Known Family History: Positive: Hypertension, Diabetes Negative: Cardiac Disease - Social History Lives: With Family Alcohol Use: None Substance Use Type: None Smoking Status (MU): Heavy Every Day Tobacco Smoker Type: Cigarettes Amount Used/How Often: 1/2 pack day Length of Time of Smoking/Using Tobacco: since age 16 Have You Smoked in the Last Year: Yes When Did the Patient Quit Smoking/Using Tobacco: 2013 Household Exposure Type: Cigarettes - Immunization History Most Recent Influenza Vaccination: NONE 2016` Vaccination Up to Date: Yes Review of Systems All Other Systems Reviewed And Are Negative: No Constitutional: Positive: Negative Skin: Positive: Negative Eyes: Positive: Negative ENT: Positive: Nasal Discharge, Sinus Congestion, Sinus Pain/Tenderness Respiratory: Positive: Cough Cardiovascular: Positive: Negative Gastrointestinal: Positive: Negative Neurovascular: Positive: Negative Neurological: Positive: Headache Psychological: Positive: Negative Physical Exam - Summary Physical Exam Summary: GENERAL: NAD. WDWN. No pain distress. SKIN: No rashes, sores, lesions, or open wounds. HEENT: Head: AT/NC Eyes: EOM intact. Conjunctiva clear without inflammation or discharge. Ears: Hearing grossly normal. TMs intact, no bulging, erythema, or edema. Nose: Nasal mucosa mildly swollen and erythematous with yellow/ clear discharge. TTP maxillary < frontal sinus. Positive post nasal drip Throat: Posterior oropharynx without exudates, erythema, or tonsillar enlargement. Uvula midline. NECK: Supple. Nontender. No lymphadenopathy. CHEST: Scant wheezing throughout. No accessory muscle use. Breathing comfortably and in no distress. CV: RRR. Pulses intact. NEURO: Alert. PSYCH: Age appropriate behavior. Triage Information Reviewed: Yes Vital Signs: Vital Signs: Temp Pulse Resp BP Pulse Ox 98.2 F 73 16 105/72 98 05/01/19 10:39 05/01/19 10:39 05/01/19 10:39 05/01/19 10:39 05/01/19 10:39 Laboratory Tests 05/01/19 10:55 Influenza A (Rapid) Negative Influenza B (Rapid) Negative Vital Signs Reviewed: Yes Flu Course/Dx - Course Course Of Treatment: POC flu negative. Suspect her headache is due to sinus congestion and pain. Will rx for zpak given her PCN allergy and recent use of doxy. Advised to be rechecked if symptoms do not improve - Differential Dx/Diagnosis Provider Diagnosis: Sinusitis Discharge ED - Sign-Out/Discharge Documenting (check all that apply): Patient Departure All imaging exams completed and their final reports reviewed: No Studies - Discharge Plan Condition: Stable Disposition: HOME Prescriptions: Azithromycin TAB* [Zithromax TAB (Z-SUSAN) 250 mg #6 tabs] 2 tab PO .TODAY, THEN 1 DAILY #1 susan guaiFENesin ER TAB [Mucinex*] 600 mg PO BID #14 tab.er Patient Education Materials: Sinusitis (ED) Referrals: Brandi Clarke [Primary Care Provider] - Additional Instructions: Flu test negative today If you develop a fever, shortness of breath, chest pain, new or worsening symptoms - please call your PCP or go to the ED immediately. Your headache seems to be due to sinus pain and congestion. We will treat you for a sinus infection and have you be rechecked if symptoms do not improve - Billing Disposition and Condition Condition: STABLE Disposition: Home
[2019-05-01] MEDS ORDERED: Ketorolac *IM* INJ* 60 MG/2 ML VIAL IM ONE (10:37)
[2019-05-01 10:47] VITALS: BP 105/72
[2019-05-01 11:07] LABS: Influenza A Molecular NEGATIVE (Negative); Influenza B Molecular NEGATIVE (Negative)
== END 2019-05-01 11:18 | disposition home or self-care (01) ==
LOC: UCCORT 09:48
DX: J32.9 Chronic sinusitis, unspecified (principal); E03.9 Hypothyroidism, unspecified; F17.210 Nicotine dependence, cigarettes, uncomplicated; Z88.0 Allergy status to penicillin; Z88.8 Allergy status to other drugs, medicaments and biological substances; Z91.09 Other allergy status, other than to drugs and biological substances; Z79.890 Hormone replacement therapy
CPT/HCPCS: 96372; 99212; G0463; J1885

== ENCOUNTER 2019-05-17 15:53 | Emergency (ER) | payer SELFPAY ==
--- NOTE | 2019-05-17 16:57 | UC ---
Back Pain HPI - HPI Summary HPI Summary: 28 y/o female presents to the urgent care c/o lower back pain for the past 4 days. Pt report Hx of chronic back pain since 2018. She was seen here about 2 weeks ago and Dx w/ Sinusitis and Rx Z-nia and Ibuprofen PO.symptoms have been resolving. But now, she is c/o her lower back pain is sharp w/ certain movement , 6/10 specially on the left side. She has taken Tylenol and Advil PO 400mg, last dose taken was at 1030am. She has a toddler and she has to carry her a lot on her arms and this has worsen her back pain. Pt denies fever, saddle anesthesia, urinary or fecal incontinence, urinary symptoms, flank pain, abdominal pain, numbness or tingling over the lower extremities, vaginal discharge, pelvic pain, N/V/d. - History of Current Complaint Chief Complaint: UCBackPain Stated Complaint: HEADACHE, BACK PAIN Time Seen by Provider: 05/17/19 16:52 Hx Obtained From: Patient Hx Last Menstrual Period: 04/20/19 ?: No - Pt declines test Onset/Duration: Gradual Onset, Lasting Weeks - 2 weeks Timing: Intermittent, Lasting Seconds Severity Initially: Mild Severity Currently: Moderate Pain Intensity: 6 Pain Scale Used: 0-10 Numeric Back Pain: Is Discrete @ - left lower back pain Character: Sharp, Spasmodic Aggravating Factor(s): Movement, Lifting, Bending Alleviating Factor(s): Rest, OTC Meds Associated Signs And Symptoms: Positive: Negative. Negative: Swelling, Fever, Weakness, Numbness, Tingling, Flank Pain, Bladder Incontinence, Bowel Incontinence, Weight Loss, Pain with Weight Bearing - Risk Factors AAA Risk Factors: Negative TAD Risk Factors: Negative Cauda Equina Risk Factors: Negative Epidural Abscess Risk Factors: Negative - Allergies/Home Medications Allergies/Adverse Reactions: Allergies Allergy/AdvReac Type Severity Reaction Status Date / Time Adhesive Tape Allergy Unknown localized Verified 05/17/19 16:29 rash sertraline [From Zoloft] Allergy Hives Verified 05/17/19 16:29 Penicillins AdvReac Vomiting Verified 05/17/19 16:29 PMH/Surg Hx/FS Hx/Imm Hx Previously Healthy: Yes Endocrine History: Hypothyroidism Other Neurological History: chronic back pain - Surgical History Surgical History: Yes Surgery Procedure, Year, and Place: sinus 2014. x2 - Family History Known Family History: Positive: Hypertension, Diabetes Negative: Cardiac Disease - Social History Occupation: Employed Full-time Lives: With Family Alcohol Use: None Substance Use Type: None Smoking Status (MU): Heavy Every Day Tobacco Smoker Type: Cigarettes Amount Used/How Often: <1/2 pack day Length of Time of Smoking/Using Tobacco: since age 16 Have You Smoked in the Last Year: Yes When Did the Patient Quit Smoking/Using Tobacco: 2013 Household Exposure Type: Cigarettes - Immunization History Most Recent Influenza Vaccination: NONE 2016` Vaccination Up to Date: Yes Review of Systems All Other Systems Reviewed And Are Negative: Yes Constitutional: Positive: Negative Skin: Positive: Negative Eyes: Positive: Negative ENT: Positive: Negative Respiratory: Positive: Negative Cardiovascular: Positive: Negative Gastrointestinal: Positive: Negative Genitourinary: Positive: Negative Motor: Positive: Negative Neurovascular: Positive: Negative Musculoskeletal: Positive: Decreased ROM - lower back, Other: - left side lower back pain Neurological: Positive: Negative Psychological: Positive: Negative Is Patient Immunocompromised?: No Physical Exam - Summary Physical Exam Summary: Vital Signs Reviewed: Yes Appearance: Well-Appearing, Well-Nourished, obese female sitting in the examining table w/o any apparent distress. Eyes: Positive: Conjunctiva Clear - PERRLA, EOMI. ENT: Positive: Normal ENT inspection, Hearing grossly normal, Pharynx normal, TMs normal, Uvula midline Neck: Positive: Supple, Nontender, No Lymphadenopathy Respiratory: Positive: Chest non-tender, Lungs clear, Normal breath sounds, No respiratory distress Cardiovascular: Positive: RRR, No Murmur, Pulses Normal, Brisk Capillary Refill Abdomen Description: Positive: Nontender, No Organomegaly, Soft. Negative: CVA Tenderness (R), CVA Tenderness (L), severe central obesity Bowel Sounds: Positive: Present Musculoskeletal: Positive: Strength Intact, BACK: Patient walked into the urgent care room with symmetric ambulation, No signs of limping, antalgic, able to bear weight. No signs of trauma, No masses palpated. Point tenderness at the level of L3-L5, left frantz paraspinal muscle tenderness w/ spasm at the same level. No CVAT, no flank ecchymosis . No sacroiliac notch tenderness, No saddle anesthesia.ROM: limited due to pain, Straight Leg Raise: negative. Patellar reflexes: brisk, symmetric Muscle strength lower extremities. Dorsiflexion/ plantar flexion of ankles. Heel/ toe walk. Lower extremities: Femoral, popliteal , posterior tibial, and dorsalis pedis pulses WNL. Pt refuse rectal exam Neurological: Positive: Alert, Muscle Tone Normal Psychological Exam: Normal Skin Exam: Normal Triage Information Reviewed: Yes Vital Signs: Initial Vital Signs Temp 97.5 F 05/17/19 16:24 Pulse 92 05/17/19 16:24 Resp 16 05/17/19 16:24 BP 97/73 05/17/19 16:24 Pulse Ox 99 05/17/19 16:24 Back Pain Course/Dx - Course Course Of Treatment: 28 y/o female presents to the urgent care c/o lower back pain for the past 4 days. Pt report Hx of chronic back pain since 2018. She was seen here about 2 weeks ago and Dx w/ Sinusitis and Rx Z-nia and Ibuprofen PO.symptoms have been resolving. But now, she is c/o her lower back pain is sharp w/ certain movement , 6/10 specially on the left side. She has taken Tylenol and Advil PO 400mg, last dose taken was at 1030am. She has a toddler and she has to carry her a lot on her arms and this has worsen her back pain. Pt denies fever, saddle anesthesia, urinary or fecal incontinence, urinary symptoms, flank pain, abdominal pain, numbness or tingling over the lower extremities, vaginal discharge, pelvic pain, N/V/d. Hx obtained. PE: Point tenderness at the level of L3-L5, left side paraspinal muscle tenderness w/ spasm at the same level on examination. UA test ordered: negative. Lumbosacral X-ray ordered, Impression: No acute osseous injury observed as per Dr Brennan. Pt explained final radiology reports will be done tomorrow, she will be notified of any abnormality. Tylenol PO ordered at the clinic. Given by nurse. Pt tolerated well medication pain decrease. Pt Rx Naproxen PO, flexeril PO and given a PT referral. Patient was instructed to f/u with orthopedic from Sports Medicine in 1 week if symptoms do not improve or worsen. Patient understands and agrees. Patient is able to ambulate freely w/o aid or limp. Plan of care was discussed with the patient and patient understands and agrees. All questions were answered at patient satisfaction. Pt left clinic hemodynamically stable. - Differential Dx/Diagnosis Differential Diagnosis/HQI/PQRI: Arthritis, Compressive Cord Syndrome, Herniated Disc, Renal Colic, Strain, Sprain Provider Diagnosis: Low back strain, Back muscle spasm Discharge ED - Sign-Out/Discharge Documenting (check all that apply): Patient Departure - D/C home All imaging exams completed and their final reports reviewed: Yes - Discharge Plan Condition: Stable Disposition: HOME Prescriptions: Cyclobenzaprine TAB* [Flexeril 10 MG TAB*] 10 mg PO TID PRN #21 tab PRN Reason: Spasms - Back Naproxen TAB* [Naprosyn 250 mg TAB*] 250 mg PO Q8H PRN #30 tab PRN Reason: back pain Patient Education Materials: Low Back Strain (ED) Referrals: Brandi Clarke [Primary Care Provider] - 3 Days [facility] [Provider Group] - 3 Days Additional Instructions: 1- Please take Naproxen PO as directed after meals for pain. 2- Take Flexeril PO as directed for muscle spasm. Please do not drive while taking the medication. 3- Wear a back support. Avoid strenuous exercise of heavy lifting. 4- Please follow up with [facility] Orthopedic Dr or your PCP in 3 days if not improvement of symptoms, for further management. - Billing Disposition and Condition Condition: STABLE Disposition: Home
[2019-05-17] MEDS ORDERED: Acetaminophen TAB* 325 MG PO ONE (17:18)
[2019-05-17 18:45] VITALS: BP 110/70
== END 2019-05-17 18:45 | disposition home or self-care (01) ==
LOC: UCCORT 15:53
DX: S39.012A Strain of muscle, fascia and tendon of lower back, initial encounter (principal); M62.830 Muscle spasm of back; G89.29 Other chronic pain; F17.210 Nicotine dependence, cigarettes, uncomplicated; Z91.09 Other allergy status, other than to drugs and biological substances; Z88.8 Allergy status to other drugs, medicaments and biological substances; Z88.0 Allergy status to penicillin; X58.XXXA Exposure to other specified factors, initial encounter; Y92.9 Unspecified place or not applicable
CPT/HCPCS: 72110; 81003; 99212; A9270-GY; G0463